=== PATIENT | male | born 1960 | race Hispanic/Latino ===

== ENCOUNTER 2017-08-16 08:15 | Emergency (ER) | payer MEDICARE ==
[2017-08-16 08:23] VITALS: BMI 30.1
[2017-08-16 08:30] VITALS: BP 126/78; PULSE 94; TEMP 98; O2SAT 99
[2017-08-16 09:23] LABS: EOS # 0.1 K/uL (0.0-0.7); HEMOGLOBIN 7.8 g/dL (12.0-18.0); MEAN PLATELET VOLUME 8.7 fL (7.2-11.7); MONO # 0.7 K/uL (0.0-0.8); WHITE BLOOD COUNT 5.6 K/uL (4.8-10.8)
[2017-08-16 09:30] LABS: BASO # 0.1 K/uL (0.0-0.2); BASO % 1.1 % (0.0-2.0); EOS % 2.6 % (0.0-4.0); LYMPH # 2.2 K/uL (1.0-4.3); LYMPH % 39.8 % (20.0-40.0); MEAN CORPUSCULAR HEMOGLOBIN 18.1 pg (27.0-31.0); MEAN CORPUSCULAR HGB CONC 30.3 g/dL (33.0-37.0); MONO % 13.1 % (0.0-10.0); NEUT # 2.4 K/uL (1.8-7.0); NEUT % 43.4 % (50.0-75.0); NRBC % 0.2 % (0.0-2.0); RBC 4.33 Mil/uL (4.40-5.90)
[2017-08-16 09:31] LABS: MEAN CELL VOLUME 59.7 fL (80.0-94.0)
[2017-08-16 09:42] LABS: ALB/GLOB RATIO 0.9 (1.0-2.1); ALBUMIN 3.9 g/dL (3.5-5.0); ALT/SGPT 28 U/L (21-72); AST/SGOT 41 U/L (17-59); BLOOD UREA NITROGEN 15 mg/dL (9-20); CALCIUM 8.9 mg/dl (8.6-10.4); GFR AFRICAN-AMERICAN > 60; GFR NON-AFRICAN AMERICAN > 60
--- NOTE | 2017-08-16 09:52 | C.PDOC ---
History Of Present Illness 57 y/o male presents to the ER complaining of concern for low platelets. Patient reports history of alcoholic cirrhosis, GI bleeds, and pancytopenia. PMD tried to notify patient of low platelets on recent labs but he does not have functioning phone, and daughter was notified. Patient visited daughter today, who brought him to the ER. Denies weakness, lethargy, dark stools, and bleeding. Admits to drinking over the holidays but not in the last 4 weeks. PMD: provider in [place] Time Seen by Provider: 08/16/17 08:46 Chief Complaint (Nursing): Abnormal Labs History Per: Patient History/Exam Limitations: no limitations Onset/Duration Of Symptoms: Days (x1) Current Symptoms Are (Timing): Still Present Past Medical History Reviewed: Historical Data, Nursing Documentation, Vital Signs Vital Signs: Last Vital Signs Temp 98.0 F 08/16/17 08:23 Pulse 94 H 08/16/17 08:23 Resp 18 08/16/17 10:15 BP 126/78 08/16/17 08:23 Pulse Ox 99 08/16/17 11:49 - Medical History PMH: Arthritis, Pancreatitis Other PMH: Alcoholic cirrhosis Surgical History: Appendectomy (as a child) Family History: States: No Known Family Hx - Social History Hx Alcohol Use: Yes (Former) Hx Substance Use: Yes (former) - Immunization History Hx Tetanus Toxoid Vaccination: Yes (3 years ago) Hx Influenza Vaccination: No Hx Pneumococcal Vaccination: No Review Of Systems Except As Marked, All Systems Reviewed And Found Negative. Constitutional: Negative for: Malaise Cardiovascular: Negative for: Chest Pain Respiratory: Negative for: Shortness of Breath Gastrointestinal: Negative for: Melena, Other (rectal bleeding) Neurological: Negative for: Weakness, Dizziness Physical Exam - Physical Exam Appears: Non-toxic, No Acute Distress, Other (Obese white male) Skin: Normal Color, Warm, Dry Head: Atraumatic, Normacephalic Eye(s): bilateral: Normal Inspection, PERRL, EOMI Oral Mucosa: Moist Throat: Normal Neck: Normal, Supple Chest: Symmetrical Cardiovascular: Rhythm Regular, No Murmur Respiratory: Normal Breath Sounds, No Accessory Muscle Use Gastrointestinal/Abdominal: Normal Exam, Soft, No Tenderness, No Distention Extremity: Normal ROM, No Deformity Neurological/Psych: Oriented x3, Normal Speech ED Course And Treatment - Laboratory Results Result Diagrams: 08/16/17 09:17 02 09:17 Lab Interpretation: Abnormal O2 Sat by Pulse Oximetry: 99 (RA) Pulse Ox Interpretation: Normal Medical Decision Making Medical Decision Making: Clinical Impression: referred by PMD in [place] "a while ago" and asymptomatic. Time: 8:51 Initial Plan: * CMP * CBC On reevaluation, pt complaining of toe pain and requesting dilaudid. Did not have this pain on arrival. Toes examined: chronic joint deformity noted. Will give Tylenol 975 mg PO. Pt with chronic anemia and plts 93 without bleeding ok for outpatient f/u with PMD Disposition Doctor Will See Patient In The: Office Counseled Patient/Family Regarding: Studies Performed, Diagnosis - Disposition Referrals: [facility] [Outside] Disposition: HOME/ ROUTINE Disposition Time: 09:51 Condition: GOOD Additional Instructions: chronic anemia and thrombocytopenia seem stable Avoid alcohol abuse as this worstens your liver function and platet counts Probable iron deficiency anemia- continue your PPI and Iron supplements per your PMD Follow-up with your PMD as able. Instructions: Anemia of Chronic Disease (DC), Bleeding Precautions Forms: Net 263 (Croatian) - Clinical Impression Clinical Impression: Thrombocytopenia - Scribe Statement The provider has reviewed the documentation as recorded by the Dara Page Provider Attestation: All medical record entries made by the Monieibwilmer were at my direction and personally dictated by me. I have reviewed the chart and agree that the record accurately reflects my personal performance of the history, physical exam, medical decision making, and the department course for this patient. I have also personally directed, reviewed, and agree with the discharge instructions and disposition.
[2017-08-16 10:16] VITALS: RESP 18
== END 2017-08-16 10:15 | disposition home or self-care (01) ==
LOC: C.ER 08:15
DX: D69.6 Thrombocytopenia, unspecified (principal)